=== PATIENT | male | born 1995 | race Caucasian/White ===

== ENCOUNTER 2017-08-08 00:09 | Emergency (ER) | payer BC ==
[~2017-08-08] VITALS: Ht 182.9 cm; Wt 85.5 kg
[2017-08-08] MEDS ORDERED: SODIUM CHLOR 0.9% 1000 ML INJ 1,000 ML IV ONE (00:15)
[2017-08-08] MEDS ORDERED: SODIUM CHLORIDE 0.9% FLUSH 5 ML FLUSH IV FLUSH PRN (00:15)
[2017-08-08] MEDS ORDERED: ONDANSETRON HCL 4 MG/2 ML VIAL IV PUSH ONE (00:15)
[2017-08-08 00:20] VITALS: BP 131/67; PULSE 92; RESP 18; TEMP 98.3; O2SAT 100
[2017-08-08 00:34] LABS: AUTOMATED NEUTROPHIL # 8.6 TH/MM3 (1.8-7.7); BASOPHIL # 0.1 TH/MM3 (0-0.2); BASOPHIL % 0.6 % (0.0-2.0); EOSINOPHIL # 0.1 TH/MM3 (0-0.4); EOSINOPHIL % 0.6 % (0.0-4.0); HEMATOCRIT 43.7 % (39.0-51.0); LYMPH % 13.4 % (9.0-44.0); LYMPHOCYTE # 1.5 TH/MM3 (1.0-4.8); MEAN CELL VOLUME 85.8 FL (80.0-100.0); MEAN CORPUSCULAR HEMOGLOBIN 29.5 PG (27.0-34.0); MEAN CORPUSCULAR HGB CONC 34.4 % (32.0-36.0); MONO % 5.8 % (0.0-8.0); NEUT % 79.6 % (16.0-70.0); PLATELET COUNT 248 TH/MM3 (150-450); RED BLOOD COUNT 5.09 MIL/MM3 (4.50-5.90); RED CELL DISTRIBUTION WIDTH 11.9 % (11.6-17.2); WHITE BLOOD COUNT 10.9 TH/MM3 (4.0-11.0)
[2017-08-08 00:37] VITALS: O2SAT 100
[2017-08-08 00:37] LABS: HEMO FLAGS DIFF FINAL
--- NOTE | 2017-08-08 00:39 | RADRPT ---
EXAM DATE/TIME: 08/08/2017 00:28 [place] COMPARISON: No previous studies available for comparison. INDICATIONS : Syncope. MEDICAL HISTORY : None. SURGICAL HISTORY : None. ENCOUNTER: Initial ACUITY: 1 day PAIN SCORE: 0/10 LOCATION: Bilateral chest FINDINGS: A single view of the chest demonstrates the lungs to be symmetrically aerated without evidence of mas s, infiltrate or effusion. The cardiomediastinal contours are unremarkable. Osseous structures are intact. CONCLUSION: No acute disease. Barrie Spence MD on August 08, 2017 at 0:36 Board Certified Radiologist. This report was verified electronically.
[2017-08-08 00:41] LABS: CHLORIDE 107 MEQ/L (98-107); POTASSIUM 3.5 MEQ/L (3.5-5.1); SODIUM (NA) 141 MEQ/L (136-145)
[2017-08-08 00:45] LABS: ANION GAP 13 MEQ/L (5-15); BICARBONATE 20.9 MEQ/L (21.0-32.0); BLOOD UREA NITROGEN 9 MG/DL (7-18)
[2017-08-08 00:48] LABS: ALT (GPT) 24 U/L (12-78); AST (GOT) 23 U/L (15-37); GLOMERULAR FILTRATION RATE 75 ML/MIN (>89)
[2017-08-08 00:49] LABS: ALCOHOL 249 MG/DL (0-5); TOTAL BILIRUBIN ADULT 0.6 MG/DL (0.2-1.0)
[2017-08-08 00:50] LABS: ALKALINE PHOSPHATASE 100 U/L (45-117)
[2017-08-08 02:07] VITALS: BP 107/61; PULSE 73; RESP 18; O2SAT 99
[2017-08-08 02:08] LABS: BLOOD, URINE NEG (NEG); GLUCOSE,URINE NEG (NEG); KETONE, URINE NEG (NEG); NITRITE,URINE NEG (NEG)
[2017-08-08 02:14] LABS: URINE COLOR YELLOW (YELLW/STRAW)
[2017-08-08 02:15] LABS: COMMENT (UR) CULT NOT INDICATED; CULTURE IF INDICATED CULT NOT INDICATED; RBC, URINE 0-2 /hpf (0-3); SQUAMOUS EPITHELIAL CELL URINE 0-5 /hpf (0-5); WBC, URINE 0-2 /hpf (0-5)
[2017-08-08] MEDS ORDERED: ZOFR4TAB3 SL (02:24)
--- NOTE | 2017-08-08 02:25 | PD ---
HPI Chief Complaint: Alcohol/Drug Intoxication Time Seen by Provider: 00:15 Travel History International Travel<30 days: No Contact w/Intl Traveler<30days: No Traveled to known affect area: No History of Present Illness HPI 22-year-old male presents to the emergency department by EMS transport from home where he had been drinking alcohol heavily with the family and social abrasion of her birthday. Patient had an episode of vomiting that was witnessed while upright without any evidence of aspiration and did not have any vomiting when he was found difficult to arouse in his bed. There is no emesis around him reportedly. No reported witnessed seizure activity. EMS was called and patient was found to be combative and difficult to manage however upon arrival here to the emergency department patient was cooperative and not combative. Family members report that he had been drinking heavily but has never behaved this manner before. There is no witnessed injury or fall. Girlfriend was reportedly with him the whole time and denies him having any injury and no vomiting was witnessed when he was in the bed with decreased level of consciousness. Patient without any known medical history. Patient known to drink alcohol occasionally. [facility] Past Medical History Narrative Medical alcohol use; nursing notes reviewed Diminished Hearing: No Tetanus Vaccination: Unknown Influenza Vaccination: No Social History Alcohol Use: Yes Tobacco Use: No Substance Use: No Allergies-Medications (Allergen,Severity, Reaction): Coded Allergies: No Known Allergies (Unverified , 08/08/17) Reported Meds & Prescriptions Reported Meds & Active Scripts Active No Active Prescriptions or Reported Medications Review of Systems Except as stated in HPI: all other systems reviewed are Neg General / Constitutional: No: Fever HENT: No: Headaches, Neck Pain Cardiovascular: No: Chest Pain or Discomfort Respiratory: No: Shortness of Breath Gastrointestinal: Positive: Vomiting, No: Abdominal Pain Genitourinary: No: Flank Pain Musculoskeletal: No: Myalgias, Arthralgias Skin: No Rash Neurologic: No: Weakness Psychiatric: No: Anxiety Hematologic/Lymphatic: No: Lymph Node Enlargement Physical Exam Narrative GENERAL: Well-developed well-nourished male in no acute distress no respiratory distress GCS 14 SKIN: Warm and dry. HEAD: Atraumatic. Normocephalic. EYES: Pupils equal and round. Extraocular muscles intact. No scleral icterus. No injection or drainage. ENT: No nasal bleeding or discharge. Mucous membranes pink and moist. Airway is patent. No tongue trauma. NECK: Trachea midline. No JVD. Supple no meningismus no nuchal rigidity. CARDIOVASCULAR: Regular rate and rhythm. RESPIRATORY: No accessory muscle use. Clear to auscultation. Breath sounds equal bilaterally. GASTROINTESTINAL: Abdomen soft, non-tender, nondistended. Hepatic and splenic margins not palpable. MUSCULOSKELETAL: Extremities without clubbing, cyanosis, or edema. No obvious deformities. NEUROLOGICAL: Awake and drowsy. No obvious cranial nerve deficits. Motor grossly within normal limits. Five out of 5 muscle strength in the arms and legs. Mildly slurred speech. Data Data Last Documented VS Vital Signs Date Time Temp Pulse Resp B/P (MAP) Pulse Ox O2 Delivery O2 Flow Rate FiO2 08/08/17 02:07 73 18 107/61 (76) 99 Room Air 08/08/17 00:20 98.3 Orders Orders Electrocardiogram (08/08/17 00:15) Complete Blood Count With Diff (08/08/17:15) Comprehensive Metabolic Panel (08/08/17:15) Urinalysis - C+S If Indicated (08/08/17 00:15) Chest, Single Ap (08/08/17:15) Blood Glucose (08/08/17 00:15) Ecg Monitoring (08/08/17:15) Iv Access Insert/Monitor (08/08/17:15) Oximetry (08/08/17 00:15) Sodium Chloride 0.9% Flush (Ns Flush) (08/08/17 00:15) Drug Screen, Random Urine (08/08/17:15) Alcohol (Ethanol) (08/08/17:15) Sodium Chlor 0.9% 1000 Ml Inj (Ns 1000 M (08/08/17 00:15) Ondansetron Inj (Zofran Inj) (08/08/17 00:15) Labs Laboratory Tests Test 08/08/17 00:20 08/08/17 02:00 White Blood Count 10.9 TH/MM3 Red Blood Count 5.09 MIL/MM3 Hemoglobin 15.0 GM/DL Hematocrit 43.7 % Mean Corpuscular Volume 85.8 FL Mean Corpuscular Hemoglobin 29.5 PG Mean Corpuscular Hemoglobin Concent 34.4 % Red Cell Distribution Width 11.9 % Platelet Count 248 TH/MM3 Mean Platelet Volume 8.2 FL Neutrophils (%) (Auto) 79.6 % Lymphocytes (%) (Auto) 13.4 % Monocytes (%) (Auto) 5.8 % Eosinophils (%) (Auto) 0.6 % Basophils (%) (Auto) 0.6 % Neutrophils # (Auto) 8.6 TH/MM3 Lymphocytes # (Auto) 1.5 TH/MM3 Monocytes # (Auto) 0.6 TH/MM3 Eosinophils # (Auto) 0.1 TH/MM3 Basophils # (Auto) 0.1 TH/MM3 CBC Comment DIFF FINAL Differential Comment Blood Urea Nitrogen 9 MG/DL Creatinine 1.20 MG/DL Random Glucose 119 MG/DL Total Protein 7.7 GM/DL Albumin 4.6 GM/DL Calcium Level 8.8 MG/DL Alkaline Phosphatase 100 U/L Aspartate Amino Transf (AST/SGOT) 23 U/L Alanine Aminotransferase (ALT/SGPT) 24 U/L Total Bilirubin 0.6 MG/DL Sodium Level 141 MEQ/L Potassium Level 3.5 MEQ/L Chloride Level 107 MEQ/L Carbon Dioxide Level 20.9 MEQ/L Anion Gap 13 MEQ/L Estimat Glomerular Filtration Rate 75 ML/MIN Ethyl Alcohol Level 249 MG/DL [facility] Medical Decision Making Medical Screen Exam Complete: Yes Emergency Medical Condition: Yes Medical Record Reviewed: Yes Interpretation(s) EKG: Sinus tachycardia rate [address] elevation or injury pattern or ectopy noted CBC & BMP Diagram 08/08/17 00:20 Total Protein 7.7, Albumin 4.6, Calcium Level 8.8, Alkaline Phosphatase 100, Aspartate Amino Transf (AST/SGOT) 23, Alanine Aminotransferase (ALT/SGPT) 24, Total Bilirubin 0.6 Vital Signs Date Time Temp Pulse Resp B/P (MAP) Pulse Ox O2 Delivery O2 Flow Rate FiO2 08/08/17 02:07 73 18 107/61 (76) 99 Room Air 08/08/17 00:37 100 Room Air 08/08/17 00:37 92 18 100 Room Air 08/08/17 00:20 98.3 92 18 131/67 (88) 100 Serum alcohol: 249, elevated UA: wnl Differential Diagnosis Alcohol intoxication, polysubstance ingestion, accidental overdose, seizure, minor CHI, aspiration of emesis Narrative Course Well-developed well-nourished 22-year-old male after heavy alcohol consumption presents to the emergency department at the request of his family for drowsiness and episode of vomiting while walking to the bedroom. Patient reportedly was difficult to awaken and EMS was called upon their arrival patient was argumentative and not allow them to start an IV and then became combative after attempting to obtain IV access and therefore they restrain the patient. Upon arrival here patient is awake and cooperative and not combative and IV access is readily obtained. Specimens collected and sent for resulting. Patient found to be in sinus rhythm. No evidence of trauma. Diagnosis Primary Impression: Alcohol intoxication Referrals: Primary Care Physician as needed Patient Instructions: General Instructions Additional Instructions: Increase fluid hydration Avoid alcoholic beverages Follow-up with primary care provider Return to the emergency for for any concerns or change in condition May take Zofran as prescribed as needed for nausea and/or vomiting Scripts Ondansetron Odt (Zofran Odt) 4 Mg Tab 4 MG SL Q6HR Y for Nausea/Vomiting, #10 TAB 0 Refills Prov: Ingrid Wood MD 08/08/17 Disposition: 01 DISCHARGE HOME Condition: Stable Ingrid Wood MD Aug 08, 2017 02:25
--- NOTE | 2017-08-08 07:09 | EKG ---
Date Performed: 08/08/2017 Time Performed: 00:23:17 PTAGE: 22 years EKG: SINUS TACHYCARDIA ABNORMAL RHYTHM ECG NO PREVIOUS TRACING DOCTOR: Holger Toro Interpretating Date/Time 08/08/2017 07:08:01
== END 2017-08-08 02:33 | disposition home or self-care (01) ==
LOC: PHED 00:09
DX: F10.129 Alcohol abuse with intoxication, unspecified (principal); Y90.8 Blood alcohol level of 240 mg/100 ml or more; R40.4 Transient alteration of awareness
CPT/HCPCS: 71010; 80053; 80307; 81001; 85025; 93005; 96374; 99285; J2405; J7030; 96361